=== PATIENT | male | born 1965 | race Caucasian/White ===

== ENCOUNTER 2024-11-07 06:42 | Outpatient (OUT) | payer OTHER, SELFPAY ==
[2024-11-07 06:57] LABS: Basophils Percent Auto 0.7 % (0.2-2.0); Eosinophils Absolute Auto 0.1 10^3/uL (0.0-0.7); Hematocrit 47.5 % (42.0-54.0); Hemoglobin 15.6 g/dL (14.0-18.0); Lymphocytes Absolute Auto 1.5 10^3/uL (1.2-3.8); Mean Corpuscular HGB Conc 32.8 g/dL (29.9-35.2); Mean Corpuscular Hemoglobin 29.6 pg (25.9-34.0); Mean Corpuscular Volume 90.1 fL (80.0-94.0); Mean Platelet Volume 9.9 fL (9.5-13.5); Monocytes Absolute Auto 0.5 10^3/uL (0.3-0.8); Monocytes Percent Auto 11.8 % (1.7-12.0); Neutrophils Absolute Auto 2.4 10^3/uL (1.4-6.5); Neutrophils Percent Auto 52.5 % (43.0-75.0); Platelet Count 217 10^3/uL (150-450); Red Blood Count 5.27 10^6/uL (4.70-6.10); Red Cell Distribution Width 13.2 % (11.0-15.0); White Blood Count 4.5 10^3/uL (4.0-11.0)
[2024-11-07 07:04] LABS: Estimated Average Glucose 126 mg/dL
[2024-11-07 07:23] LABS: Alanine Aminotransferase 46 U/L (16-63); Albumin Globulin Ratio 1.1; Alkaline Phosphatase 59 U/L (46-116); Anion Gap 9.8; Aspartate Amino Transferase 21 U/L (15-37); BUN Creatinine Ratio 19.2; Bilirubin Total 1.4 mg/dL (0.2-1.0); Calcium 9.1 mg/dL (8.5-10.1); Carbon Dioxide 32.7 mmol/L (21.0-32.0); Chloride 105 mmol/L (98-107); Chol HDL Ratio 3.9; Cholesterol 172 mg/dL (<=200); Estimated GFR (African America >60 (>=60 mL/min/1.73m^2); Estimated GFR (Non-African Ame >60 (>=60 mL/min/1.73m^2); Globulin 3.6 g/dL; Glucose 134 mg/dL (74-106); HDL Cholesterol 44 mg/dL (40-60); LDL Cholesterol Calculated 108.6 mg/dL; Potassium 4.5 mmol/L (3.5-5.1); Sodium 143 mmol/L (136-145); Total Protein 7.6 g/dL (6.4-8.2); Triglycerides 97 mg/dL (<=150); VLDL CHOLESTEROL 19.4 mg/dL
[2024-11-07 07:37] LABS: Prostate Specific Antigen Scrn 1.72 ng/mL (<=4.00)
== END 2024-11-07 06:43 | disposition home or self-care (01) ==
LOC: LAB 06:42
PROVIDERS: PCP Internal Medicine; Visit Provider Internal Medicine
DX: Z00.00 Encounter for general adult medical examination without abnormal findings (principal)
CPT/HCPCS: 36415; 80053; 80061; 83036; 85025; G0103